=== PATIENT | male | born 1945 | race Caucasian/White ===

== ENCOUNTER 2021-06-22 06:31 | Inpatient (IN) | payer MEDICARE, OTHER ==
[~2021-06-22] VITALS: Ht 182.9 cm; Wt 113.0 kg
[2021-06-22] VITALS (16 sets, daily range): BP systolic 136–170; BP diastolic 71–95
[~2021-06-22 06:31] MED LIST: ATOR20TA66 PO; LEVO50TA8 PO
[2021-06-22] MEDS ORDERED: normal saline 1000ML IV soln IVB ONE (07:40)
[2021-06-22] MEDS ORDERED: iohexol 300mg/ml 100ml inj. ONE ×2 (08:56→09:20)
[2021-06-22 09:00] LABS: BASOPHILS % (AUTO) 0.1 % (0-1); EOSINOPHILS % (AUTO) 0.2 % (0-6); HEMATOCRIT 29.9 % (42.0-52.0); HEMOGLOBIN 9.5 g/dl (14.0-17.9); LYMPHOCYTES # (AUTO) 0.6 X10'3 (1.1-4.8); LYMPHOCYTES % (AUTO) 5.9 % (21-51); MEAN CORPUSCULAR HEMOGLOBIN 22.4 PG (27.0-31.0); MEAN CORPUSCULAR HGB CONC 31.6 g/dL (33.0-36.5); MEAN CORPUSCULAR VOLUME 70.7 FL (78-98); MEAN PLATELET VOLUME 7.2 FL (7.4-10.4); MONOCYTES # (AUTO) 0.5 X10'3 (0-0.9); MONOCYTES % (AUTO) 4.6 % (2-12); NEUTROPHILS # (AUTO) 9.3 X10'3 (1.8-7.7); NEUTROPHILS % (AUTO) 89.2 % (42-75); PLATELET COUNT 465 X10'3 (140-440); RED BLOOD COUNT 4.23 X10'6 (4.70-6.10); RED CELL DISTRIBUTION WIDTH 17.5 % (11.5-14.5); WHITE BLOOD COUNT 10.4 X10'3 (4.5-11.0)
[2021-06-22 09:13] LABS: ALANINE AMINOTRANSFERASE 22 U/L (12-78); ALBUMIN 3.8 G/DL (3.4-5.0); ALKALINE PHOSPHATASE 92 IU/L (46-116); ANION GAP 12 (8-16); ASPARTATE AMINO TRANSFERASE 17 U/L (10-37); BILIRUBIN,TOTAL 0.8 MG/DL (0.1-1.0); BLOOD UREA NITROGEN 25 MG/DL (7-18); BUN/CREATININE RATIO 18.8 (5.4-32.0); CALCIUM 9.6 MG/DL (8.5-10.1); CHLORIDE 104 MMOL/L (99-107); CREATININE 1.33 MG/DL (0.60-1.10); GLUCOSE 121 MG/DL (70-104); POTASSIUM 4.4 MMOL/L (3.5-5.1); SODIUM 143 MMOL/L (135-145); TOTAL CARBON DIOXIDE 27.2 MMOL/L (24-32); TOTAL PROTEIN 7.7 G/DL (6.4-8.2); eGFR 52 ML/MIN
[2021-06-22 09:22] LABS: MAGNESIUM 2.2 MG/DL (1.5-2.4)
[2021-06-22] MEDS ORDERED: potassium Cl 40MEQ/1/2NS 520ml 520 ML IV PRN ×2 (10:15)
[2021-06-22] MEDS ORDERED: magnesium 4gm in 100ml NS 100 ML IV PRN (10:15)
[2021-06-22] MEDS ORDERED: magnesium 2GM in 50ml NS 50 ML IV PRN (10:15)
[2021-06-22] MEDS ORDERED: PERFLUTREN PROTEIN-A MICROSPHR (Optison) 0.22 MG/ML 3ML VIAL IV ONE (10:15)
[2021-06-22] MEDS ORDERED: acetaminophen 325mg tablet PO PRN (10:15)
[2021-06-22] MEDS ORDERED: magnesium Cl slow-release 64mg tablet PO PRN (10:15)
[2021-06-22] MEDS ORDERED: ondansetron/PF 4mg/2ml inj IV PRN ×2 (10:15→17:30)
[2021-06-22] MEDS ORDERED: potassium Cl 20 mEq SR tablet PO PRN ×2 (10:15)
[2021-06-22] MEDS ORDERED: morphine 2 MG/ML inj. syringe IV PRN (10:15)
[2021-06-22] MEDS: K and/or MAG REPLACEMENT MC SCH (10:29)
[2021-06-22] MEDS: normal saline 1000ml 1,000 ML IV SCH ×2 (10:39→21:04)
[2021-06-22 10:56] LABS: PARTIAL THROMBOPLASTIN TIME 24 SECONDS (22-32)
[2021-06-22] MEDS ORDERED: ATOR20TA66 PO (10:58)
[2021-06-22] MEDS ORDERED: LEVO88TA7 PO (10:58)
[2021-06-22 12:55] LABS: CLARITY,URINE CLOUDY (Clear); COLOR,URINE YELLOW (Yellow); GLUCOSE, URINE NEGATIVE (Neg); PROTEIN,URINE NEGATIVE (Neg); UA COLLECTION TYPE CLN CATCH MIDSTREAM
[2021-06-22 12:56] LABS: KETONES,URINE TRACE mg/dl (Neg); LEUKOCYTE ESTERASE ,URINE NEGATIVE (Neg); NITRITES, URINE NEGATIVE (Neg); OCCULT BLOOD,URINE NEGATIVE (Neg); UROBILINOGEN,URINE 0.2 E.U/dL (0.2-1.0)
[2021-06-22 13:12] LABS: HYALINE CASTS 0-3 /LPF (NEGATIVE); MUCUS STRANDS MANY /LPF (Neg); SQUAMOUS EPITHELIAL CELL,UR FEW /LPF (FEW)
[2021-06-22 13:13] LABS: BACTERIA,URINE 1+ /HPF (Neg); RBC,URINE 0-2 /HPF (0-2); WBC,URINE 0-4 /HPF (0-4)
[2021-06-22] MEDS ORDERED: ePHEDrine 50MG/ML INJ. ONE (17:29)
[2021-06-22] MEDS ORDERED: ceFOXitin 2,000 MG/NS 100 ML ADD-VANTAGE bag IV ONE (17:29)
[2021-06-22] MEDS ORDERED: sevoflurane 250ml liquid IH ONE (17:29)
[2021-06-22] MEDS ORDERED: dexamethasone sod phosphate 10mg/ml inj ONE (17:29)
[2021-06-22] MEDS ORDERED: ringers solution, lacted 1,000 ML IV SCH (17:30)
[2021-06-22] MEDS ORDERED: HYDROmorphone/PF 0.2 MG/ML SYRINGE IV PRN (17:30)
[2021-06-22] MEDS ORDERED: BUPIVAcaine/PF 2.5mg/ml (0.25%) 10ml vial ONE (17:32)
[2021-06-22] MEDS ORDERED: BUPIVACAINE liposomal/PF 13.3 MG/ML vial IM ONE (17:32)
[2021-06-22] MEDS ORDERED: fentaNYL /PF 50mcg/ml 5ml ampule ONE (17:33)
[2021-06-22] MEDS ORDERED: LIDOcaine 2% (20mg/ml) 5ml vial ONE (18:54)
[2021-06-22] MEDS ORDERED: rocuronium 10mg/ml inj IV ONE (18:54)
[2021-06-22] MEDS ORDERED: acetaminophen 1,000mg/100ml IV 100 ML IV ONE (18:54)
[2021-06-22] MEDS ORDERED: glycopyrrolate 0.2mg/ml inj ONE (18:54)
[2021-06-22] MEDS ORDERED: ondansetron/PF 4mg/2ml inj ONE (18:54)
[2021-06-22] MEDS ORDERED: propofol inj 20 ML IV ONE (18:54)
[2021-06-22] MEDS ORDERED: neostigmine methylsulfate 1 MG/ML 10ml vial ONE (18:54)
[2021-06-22] MEDS ORDERED: sugammadex 200mg/2ml injection IV ONE (19:07)
--- NOTE | 2021-06-22 19:17 | NUR ---
Received from OR via , accompanied by Anesthesiologist DR APODACA and report given by Anesthesiolgist. PT PRESENTS WITH 20G LEFT AC, ABD DRESSING DRY AND INTACT, VSS. Addendum: 06/22/21 at 1936 by Viry Weaver RN, RN Amended: Links added.
[2021-06-22] MEDS ORDERED: ipratropium/albuterol 3ml nebule NEB PRN (19:30)
[2021-06-22] MEDS: HYDROmorphone/PF 0.2 MG/ML SYRINGE IV PRN ×3 (19:37→20:35)
[2021-06-22] MEDS: morphine 2 MG/ML inj. syringe IV PRN ×4 (19:52→20:16)
[2021-06-22 19:53] LABS: ISTAT HGB 10.2 g/dl (14.0-18.0); ISTAT IONIZED CALCIUM 1.08 mmol/L (1.03-1.32); ISTAT K 4.3 mmol/L (3.5-5.1)
--- NOTE | 2021-06-22 20:37 | NUR ---
Report called to receiving nurse SOFIA JAQUEZ. [facility]. PT'SBED LOW AND LOCKED, CALL LIGHT GIVEN TO PT. PT'S IN ROOM. GISELE BLACK IN ROOM TO ACCEPT PT. Addendum: 06/22/21 at 2054 by Viry Weaver RN, RN Amended: Links added.
[2021-06-22] MEDS ORDERED: temazepam 15mg capsule PO PRN (21:00)
[2021-06-22] MEDS: heparin, porcine 5000 units/ml vial SQ SCH (22:19)
[2021-06-22] MEDS: atorvastatin 20mg tablet PO SCH (22:22)
[2021-06-22] MEDS: HYDROcodone/acetaminophen 5mg/325mg tablet PO PRN (23:29)
[2021-06-23] VITALS (11 sets, daily range): BP systolic 108–170; BP diastolic 68–90
[2021-06-23 06:49] LABS: BASOPHILS % (AUTO) 0.1 % (0-1); EOSINOPHILS % (AUTO) 0 % (0-6); HEMATOCRIT 26.5 % (42.0-52.0); HEMOGLOBIN 8.5 g/dl (14.0-17.9); LYMPHOCYTES # (AUTO) 0.6 X10'3 (1.1-4.8); LYMPHOCYTES % (AUTO) 7.5 % (21-51); MEAN CORPUSCULAR HEMOGLOBIN 22.7 PG (27.0-31.0); MEAN CORPUSCULAR VOLUME 70.9 FL (78-98); MEAN PLATELET VOLUME 7.7 FL (7.4-10.4); MONOCYTES # (AUTO) 0.8 X10'3 (0-0.9); MONOCYTES % (AUTO) 9.7 % (2-12); NEUTROPHILS # (AUTO) 6.9 X10'3 (1.8-7.7); NEUTROPHILS % (AUTO) 82.7 % (42-75); PLATELET COUNT 400 X10'3 (140-440); RED BLOOD COUNT 3.74 X10'6 (4.70-6.10); RED CELL DISTRIBUTION WIDTH 17.8 % (11.5-14.5); WHITE BLOOD COUNT 8.3 X10'3 (4.5-11.0)
--- NOTE | 2021-06-23 06:52 | NUR ---
Patient in room PCU 3013. I have received report from Brunilda JAQUEZ and had the opportunity to ask questions and assume patient care.
[2021-06-23 07:33] LABS: ALANINE AMINOTRANSFERASE 16 U/L (12-78); ALBUMIN/GLOBULIN RATIO 0.9 (1.1-1.5); ALKALINE PHOSPHATASE 70 IU/L (46-116); ANION GAP 11 (8-16); ASPARTATE AMINO TRANSFERASE 13 U/L (10-37); BILIRUBIN,TOTAL 0.6 MG/DL (0.1-1.0); BLOOD UREA NITROGEN 22 MG/DL (7-18); BUN/CREATININE RATIO 16.2 (5.4-32.0); CALCIUM 7.8 MG/DL (8.5-10.1); CHLORIDE 107 MMOL/L (99-107); CREATININE 1.36 MG/DL (0.60-1.10); GLUCOSE 128 MG/DL (70-104); MAGNESIUM 1.9 MG/DL (1.5-2.4); POTASSIUM 4.4 MMOL/L (3.5-5.1); SODIUM 142 MMOL/L (135-145); TOTAL CARBON DIOXIDE 23.8 MMOL/L (24-32); TOTAL PROTEIN 6.3 G/DL (6.4-8.2); eGFR 51 ML/MIN
[2021-06-23] MEDS: normal saline 1000ml 1,000 ML IV SCH ×2 (07:49→21:20)
[2021-06-23] MEDS: HYDROcodone/acetaminophen 5mg/325mg tablet PO PRN (07:50)
[2021-06-23] MEDS: heparin, porcine 5000 units/ml vial SQ SCH ×2 (07:50→21:20)
[2021-06-23] MEDS: K and/or MAG REPLACEMENT MC SCH ×2 (08:00→20:00)
[2021-06-23] MEDS: levoTHYROXINE 88mcg tablet PO SCH (08:00)
--- NOTE | 2021-06-23 14:30 | NUR ---
Per Paul PT, patient okay to ambulate with nursing
--- NOTE | 2021-06-23 18:18 | NUR ---
Patient in room PCU 3013A. I have received report from GISELE Bragg and had the opportunity to ask questions and assume patient care.
--- NOTE | 2021-06-23 18:37 | NUR ---
Problems reprioritized. Patient report given, questions answered & plan of care reviewed with Breanne JAQUEZ.
[2021-06-23] MEDS: atorvastatin 20mg tablet PO SCH (21:20)
[2021-06-24] VITALS (8 sets, daily range): BP systolic 111–137; BP diastolic 57–80
[2021-06-24] MEDS: normal saline 1000ml 1,000 ML IV SCH ×3 (02:15→22:15)
--- NOTE | 2021-06-24 06:40 | NUR ---
Patient in room PCU 3013. I have received report from Breanne JAQUEZ and had the opportunity to ask questions and assume patient care.
--- NOTE | 2021-06-24 07:07 | NUR ---
Problems reprioritized. Patient report given, questions answered & plan of care reviewed with GISELE Hernandez.
[2021-06-24 07:11] LABS: BASOPHILS % (AUTO) 0.2 % (0-1); EOSINOPHILS % (AUTO) 0.2 % (0-6); HEMATOCRIT 27.8 % (42.0-52.0); HEMOGLOBIN 8.9 g/dl (14.0-17.9); LYMPHOCYTES # (AUTO) 1.3 X10'3 (1.1-4.8); LYMPHOCYTES % (AUTO) 15.3 % (21-51); MEAN CORPUSCULAR HEMOGLOBIN 22.4 PG (27.0-31.0); MEAN CORPUSCULAR HGB CONC 31.9 g/dL (33.0-36.5); MEAN CORPUSCULAR VOLUME 70.3 FL (78-98); MEAN PLATELET VOLUME 7.6 FL (7.4-10.4); MONOCYTES # (AUTO) 1.1 X10'3 (0-0.9); MONOCYTES % (AUTO) 12.8 % (2-12); NEUTROPHILS # (AUTO) 6.1 X10'3 (1.8-7.7); NEUTROPHILS % (AUTO) 71.5 % (42-75); PLATELET COUNT 446 X10'3 (140-440); RED BLOOD COUNT 3.95 X10'6 (4.70-6.10); RED CELL DISTRIBUTION WIDTH 17.6 % (11.5-14.5); WHITE BLOOD COUNT 8.5 X10'3 (4.5-11.0)
[2021-06-24 07:26] LABS: ALANINE AMINOTRANSFERASE 20 U/L (12-78); ALBUMIN 2.9 G/DL (3.4-5.0); ALBUMIN/GLOBULIN RATIO 0.8 (1.1-1.5); ALKALINE PHOSPHATASE 74 IU/L (46-116); ANION GAP 12 (8-16); ASPARTATE AMINO TRANSFERASE 20 U/L (10-37); BILIRUBIN,TOTAL 0.6 MG/DL (0.1-1.0); BLOOD UREA NITROGEN 16 MG/DL (7-18); BUN/CREATININE RATIO 9.7 (5.4-32.0); CHLORIDE 106 MMOL/L (99-107); CREATININE 1.65 MG/DL (0.60-1.10); GLUCOSE 131 MG/DL (70-104); MAGNESIUM 1.9 MG/DL (1.5-2.4); POTASSIUM 3.6 MMOL/L (3.5-5.1); SODIUM 141 MMOL/L (135-145); TOTAL PROTEIN 6.6 G/DL (6.4-8.2); eGFR 41 ML/MIN
[2021-06-24] MEDS: K and/or MAG REPLACEMENT MC SCH ×2 (08:00→19:45)
[2021-06-24] MEDS: heparin, porcine 5000 units/ml vial SQ SCH ×2 (08:55→21:17)
[2021-06-24] MEDS: levoTHYROXINE 88mcg tablet PO SCH (08:55)
[2021-06-24] MEDS ORDERED: benzocaine/menthol oral lozeng 1 EACH BOX MM PRN (14:25)
--- NOTE | 2021-06-24 18:30 | NUR ---
Patient in room PCU 3013. I have received report from Mary JAQUEZ and had the opportunity to ask questions and assume patient care.
--- NOTE | 2021-06-24 18:54 | NUR ---
Problems reprioritized. Patient report given, questions answered & plan of care reviewed with Dominga JAQUEZ.
[2021-06-24] MEDS: atorvastatin 20mg tablet PO SCH (21:17)
[2021-06-25] VITALS (13 sets, daily range): BP systolic 102–125; BP diastolic 54–70
--- NOTE | 2021-06-25 06:38 | NUR ---
Patient in room PCU 3013. I have received report from Cherelle JAQUEZ and had the opportunity to ask questions and assume patient care.
[2021-06-25 07:45] LABS: BASOPHILS % (AUTO) 0.5 % (0-1); EOSINOPHILS # (AUTO) 0.1 X10'3 (0-0.9); EOSINOPHILS % (AUTO) 1.1 % (0-6); HEMATOCRIT 24.7 % (42.0-52.0); HEMOGLOBIN 7.9 g/dl (14.0-17.9); LYMPHOCYTES # (AUTO) 1.4 X10'3 (1.1-4.8); LYMPHOCYTES % (AUTO) 17.7 % (21-51); MEAN CORPUSCULAR HEMOGLOBIN 22.7 PG (27.0-31.0); MEAN CORPUSCULAR VOLUME 70.9 FL (78-98); MEAN PLATELET VOLUME 7.8 FL (7.4-10.4); MONOCYTES # (AUTO) 0.7 X10'3 (0-0.9); MONOCYTES % (AUTO) 8.5 % (2-12); NEUTROPHILS # (AUTO) 5.8 X10'3 (1.8-7.7); NEUTROPHILS % (AUTO) 72.2 % (42-75); PLATELET COUNT 399 X10'3 (140-440); RED BLOOD COUNT 3.48 X10'6 (4.70-6.10); RED CELL DISTRIBUTION WIDTH 17.7 % (11.5-14.5); WHITE BLOOD COUNT 8.1 X10'3 (4.5-11.0)
[2021-06-25 07:55] LABS: ALANINE AMINOTRANSFERASE 29 U/L (12-78); ALBUMIN 2.8 G/DL (3.4-5.0); ALBUMIN/GLOBULIN RATIO 0.8 (1.1-1.5); ALKALINE PHOSPHATASE 74 IU/L (46-116); ANION GAP 14 (8-16); ASPARTATE AMINO TRANSFERASE 24 U/L (10-37); BILIRUBIN,TOTAL 0.6 MG/DL (0.1-1.0); BLOOD UREA NITROGEN 15 MG/DL (7-18); BUN/CREATININE RATIO 10.3 (5.4-32.0); CALCIUM 7.9 MG/DL (8.5-10.1); CHLORIDE 107 MMOL/L (99-107); CREATININE 1.45 MG/DL (0.60-1.10); GLUCOSE 103 MG/DL (70-104); POTASSIUM 3.2 MMOL/L (3.5-5.1); SODIUM 142 MMOL/L (135-145); TOTAL CARBON DIOXIDE 21.5 MMOL/L (24-32); TOTAL PROTEIN 6.5 G/DL (6.4-8.2); eGFR 47 ML/MIN
[2021-06-25] MEDS: levoTHYROXINE 100mcg tablet PO SCH (08:55)
[2021-06-25] MEDS: heparin, porcine 5000 units/ml vial SQ SCH ×2 (08:56→22:17)
--- NOTE | 2021-06-25 09:31 | NUR ---
Left message for wound care 06/25/21 0932 Patience RN PCU
--- NOTE | 2021-06-25 10:45 | NUR ---
PAGER ID: [phone] MESSAGE: Kim Arroyo in Room 3013A Is getting ready for an MRI, he is claustrophobic can we get Ativan for the patient before he goes? Please advise. Thank you Patience AGUAYO RN
[2021-06-25] MEDS ORDERED: LORazepam 2 mg/ml vial IV ONE (11:25)
[2021-06-25] MEDS ORDERED: magnesium Cl slow-release 64mg tablet PO PRN (11:45)
[2021-06-25] MEDS ORDERED: potassium Cl 20 mEq SR tablet PO PRN (11:45)
[2021-06-25] MEDS ORDERED: magnesium 2GM in 50ml NS 50 ML IV PRN (11:45)
[2021-06-25] MEDS ORDERED: potassium Cl 40MEQ/1/2NS 520ml 520 ML IV PRN (11:45)
[2021-06-25] MEDS ORDERED: magnesium 4gm in 100ml NS 100 ML IV PRN (11:45)
[2021-06-25 12:39] LABS: HEMATOCRIT 22.6 % (42.0-52.0); MEAN CORPUSCULAR HGB CONC 30.5 g/dL (33.0-36.5); MEAN CORPUSCULAR VOLUME 72.3 FL (78-98); MEAN PLATELET VOLUME 7.6 FL (7.4-10.4); PLATELET COUNT 330 X10'3 (140-440); RED BLOOD COUNT 3.13 X10'6 (4.70-6.10); WHITE BLOOD COUNT 6.1 X10'3 (4.5-11.0)
[2021-06-25 12:46] LABS: HEMOGLOBIN 6.9 g/dl (14.0-17.9)
--- NOTE | 2021-06-25 13:01 | NUR ---
PAGER ID: [phone] MESSAGE: Pt Kim Arroyo 3013A has Critical H/H of 6.9/22.6 with his hemogram redraw. Would you like me to infuse a unit of PRBC?
[2021-06-25] MEDS: potassium Cl 20 mEq SR tablet PO PRN ×3 (13:04→22:16)
--- NOTE | 2021-06-25 13:59 | NUR ---
Page to [facility] PAGER ID: [phone] MESSAGE: Pt Kim Arroyo repeat H/H is 6.9//22.6, would you like to transfuse? Pls advise, Orly [id number]
--- NOTE | 2021-06-25 14:12 | NUR ---
Called [facility] to see if biopsy was ready they stated it would be ready tomorrow. Patience
--- NOTE | 2021-06-25 14:14 | NUR ---
Unable to obtain 1100 vitals because patient was in a procedure.
--- NOTE | 2021-06-25 18:13 | NUR ---
Problems reprioritized. Patient report given, questions answered & plan of care reviewed with Felisa RN.
--- NOTE | 2021-06-25 18:38 | NUR ---
Problems reprioritized. Patient report given, questions answered & plan of care reviewed with Ni.
[2021-06-25] MEDS ORDERED: K and/or MAG REPLACEMENT MC SCH (20:00)
[2021-06-25] MEDS: atorvastatin 20mg tablet PO SCH (22:16)
[2021-06-26 00:51] VITALS: BP 110/54
[2021-06-26 01:51] VITALS: BP 101/55
[2021-06-26 02:00] VITALS: BP 110/57
--- NOTE | 2021-06-26 05:43 | NUR ---
Alert and responsive, oriented x 4 patient, who was admitted for SBO, and is POD#2 Exploratory laparotomy, with right colon resection. Patient`s hemoglobin was 6.9, and during this shift was administered two units of blood; tolerated with no adverse reactions presently. Vitals signs stable, and patient denied respiratory or physical distress.
[2021-06-26 06:00] VITALS: BP 98/57
--- NOTE | 2021-06-26 07:04 | NUR ---
Patient in room U 3013. I have received report from Felisa RN traveler and had the opportunity to ask questions and assume patient care.
[2021-06-26 07:26] LABS: BASOPHILS # (AUTO) 0.1 X10'3 (0-0.2); BASOPHILS % (AUTO) 0.8 % (0-1); EOSINOPHILS # (AUTO) 0.3 X10'3 (0-0.9); EOSINOPHILS % (AUTO) 3.9 % (0-6); HEMATOCRIT 28.1 % (42.0-52.0); HEMOGLOBIN 9.1 g/dl (14.0-17.9); LYMPHOCYTES # (AUTO) 1.3 X10'3 (1.1-4.8); MEAN CORPUSCULAR HEMOGLOBIN 23.9 PG (27.0-31.0); MEAN CORPUSCULAR HGB CONC 32.2 g/dL (33.0-36.5); MEAN CORPUSCULAR VOLUME 74.1 FL (78-98); MEAN PLATELET VOLUME 7.5 FL (7.4-10.4); MONOCYTES # (AUTO) 0.6 X10'3 (0-0.9); MONOCYTES % (AUTO) 9.5 % (2-12); NEUTROPHILS # (AUTO) 4.3 X10'3 (1.8-7.7); NEUTROPHILS % (AUTO) 65.8 % (42-75); PLATELET COUNT 340 X10'3 (140-440); RED BLOOD COUNT 3.79 X10'6 (4.70-6.10); RED CELL DISTRIBUTION WIDTH 20.2 % (11.5-14.5); WHITE BLOOD COUNT 6.6 X10'3 (4.5-11.0)
[2021-06-26 08:12] LABS: ALANINE AMINOTRANSFERASE 38 U/L (12-78); ALBUMIN 2.7 G/DL (3.4-5.0); ALBUMIN/GLOBULIN RATIO 0.7 (1.1-1.5); ALKALINE PHOSPHATASE 74 IU/L (46-116); ANION GAP 10 (8-16); ASPARTATE AMINO TRANSFERASE 29 U/L (10-37); BILIRUBIN,TOTAL 0.8 MG/DL (0.1-1.0); BLOOD UREA NITROGEN 12 MG/DL (7-18); CHLORIDE 111 MMOL/L (99-107); GLUCOSE 89 MG/DL (70-104); MAGNESIUM 2.1 MG/DL (1.5-2.4); POTASSIUM 3.7 MMOL/L (3.5-5.1); SODIUM 144 MMOL/L (135-145); TOTAL CARBON DIOXIDE 22.6 MMOL/L (24-32); TOTAL PROTEIN 6.4 G/DL (6.4-8.2); eGFR 59 ML/MIN
[2021-06-26] MEDS: levoTHYROXINE 100mcg tablet PO SCH (08:59)
[2021-06-26] MEDS: heparin, porcine 5000 units/ml vial SQ SCH (08:59)
[2021-06-26] MEDS ORDERED: HYDR-3965 PO (09:48)
[2021-06-26] MEDS ORDERED: LEVO100T9 PO (09:48)
[2021-06-26 11:00] VITALS: BP 104/45
--- NOTE | 2021-06-26 11:30 | NUR ---
Wound care consult received for "Possible need for Wound Vac placement", however, there are no orders for vac. Patient has current orders for [id number] and dressing change performed today by primary RN. Patient is being discharged shortly.
--- NOTE | 2021-06-26 12:40 | NUR ---
Pt DC to home with . Pt is A & O x4 and in no apparent distress. Pt and verbalize understanding of ALL Dc orders. pt and educated/shown how to care for incisional wound. able to teach back. Home Health has been arrange for pt to get help with wound care and/or other needs as identified by nurse. Pt given supplies for wound care change for at least 3-4 days. pt is also going to follow up in 3-[address] Gayle and PCP. Pt given phone number to call for an Appointment. New Medications given and called into pharmacy. Pt wheeled to the front where took him home.
== END 2021-06-26 12:40 | disposition home health service (06) | DRG 331 ==
LOC: ER 06:31 → ED HOLD 10:18 → PCU 3S 20:42
PROVIDERS: ADMIT Internal Medicine; ATTEND Internal Medicine
PROC: 07BB0ZZ Excision of Mesenteric Lymphatic, Open Approach (ICD-10-PCS; 2021-06-22)
PROC: 0DTH0ZZ Resection of Cecum, Open Approach (ICD-10-PCS; principal; 2021-06-22 17:29)
PROC: 30233N1 Transfusion of Nonautologous Red Blood Cells into Peripheral Vein, Percutaneous Approach (ICD-10-PCS; 2021-06-25)
DX: K63.9 Disease of intestine, unspecified (principal); K56.601 Complete intestinal obstruction, unspecified as to cause; D64.9 Anemia, unspecified; E03.9 Hypothyroidism, unspecified; S00.81XA Abrasion of other part of head, initial encounter; E78.00 Pure hypercholesterolemia, unspecified; E78.5 Hyperlipidemia, unspecified; W18.39XA Other fall on same level, initial encounter; Z20.822 Contact with and (suspected) exposure to COVID-19; R55 Syncope and collapse; J44.9 Chronic obstructive pulmonary disease, unspecified; K80.20 Calculus of gallbladder without cholecystitis without obstruction; N18.30 Chronic kidney disease, stage 3 unspecified; Y93.89 Activity, other specified; Y92.89 Other specified places as the place of occurrence of the external cause; Y99.8 Other external cause status
CPT/HCPCS: 36415; 70450; 70544; 70551; 71045; 74176; 80047; 80053; 81001; 82378; 82948; 83735; 83880; 84443; 84484; 85025; 85027; 85610; 85730; 86885; 86900; 86901; 86920; 87635; 93005; 93306; 93880; 94640; 94760; 96360; 96361; 97116; 97161; 99285; A4618; A6253; A6446; A7000; C1758; C9290; C9399; C9803; G0378; J0131; J0694; J1100; J1170; J1644; J2001; J2060; J2270; J2405; J2704; J2710; J3010; J3490; J7030; J7120; P9016; Q9967

== ENCOUNTER 2021-08-26 10:45 | Day surgery (SDC) | payer MEDICARE, OTHER ==
[~2021-08-26] VITALS: Ht 182.9 cm; Wt 113.4 kg
[~2021-08-26 10:45] MED LIST changes: +LEVO100T9 PO; -LEVO50TA8 PO
[2021-08-26] MEDS ORDERED: normal saline 1000ml 1,000 ML IV PRN (11:10)
[2021-08-26 11:29] VITALS: BP 138/79
[2021-08-26] MEDS ORDERED: FERR325T29 PO (11:29)
[2021-08-26] MEDS ORDERED: OMEP10CA5 PO (11:29)
[2021-08-26] MEDS ORDERED: LEVO100T PO (11:31)
[2021-08-26 11:55] LABS: BASOPHILS # (AUTO) 0.1 X10'3 (0-0.2); BASOPHILS % (AUTO) 1.2 % (0-1); EOSINOPHILS # (AUTO) 0.1 X10'3 (0-0.9); EOSINOPHILS % (AUTO) 2.2 % (0-6); HEMATOCRIT 36.8 % (42.0-52.0); HEMOGLOBIN 11.9 g/dl (14.0-17.9); LYMPHOCYTES # (AUTO) 0.9 X10'3 (1.1-4.8); LYMPHOCYTES % (AUTO) 20.9 % (21-51); MEAN CORPUSCULAR HEMOGLOBIN 26.6 PG (27.0-31.0); MEAN CORPUSCULAR HGB CONC 32.3 g/dL (33.0-36.5); MEAN CORPUSCULAR VOLUME 82.5 FL (78-98); MEAN PLATELET VOLUME 7.7 FL (7.4-10.4); MONOCYTES # (AUTO) 0.4 X10'3 (0-0.9); MONOCYTES % (AUTO) 9.5 % (2-12); NEUTROPHILS # (AUTO) 2.9 X10'3 (1.8-7.7); NEUTROPHILS % (AUTO) 66.2 % (42-75); PLATELET COUNT 224 X10'3 (140-440); RED BLOOD COUNT 4.46 X10'6 (4.70-6.10); RED CELL DISTRIBUTION WIDTH 27.2 % (11.5-14.5); WHITE BLOOD COUNT 4.5 X10'3 (4.5-11.0)
[2021-08-26 12:15] LABS: ACANTHOCYTES 1+; ANISOCYTOSIS 3+; ELLIPTOCYTES 1+; PLATELET ESTIMATE NORMAL; SCHISTOCYTES FEW
[2021-08-26 12:21] LABS: ALBUMIN 3.7 G/DL (3.4-5.0); ANION GAP 8 (8-16); BLOOD UREA NITROGEN 14 MG/DL (7-18); BUN/CREATININE RATIO 9.6 (5.4-32.0); CALCIUM 9.1 MG/DL (8.5-10.1); CHLORIDE 107 MMOL/L (99-107); CREATININE 1.46 MG/DL (0.60-1.10); GLUCOSE 97 MG/DL (70-104); POTASSIUM 4.1 MMOL/L (3.5-5.1); SODIUM 143 MMOL/L (135-145); TOTAL CARBON DIOXIDE 27.6 MMOL/L (24-32); eGFR 47 ML/MIN
[2021-08-26] MEDS ORDERED: heparin sodium, porcine/PF 100unit/ml 5ML syringe ONE (12:30)
[2021-08-26] MEDS ORDERED: LIDOCAINE 1%/EPI 1:100,000 inj. 10 ML multi-dose vial ONE (12:30)
[2021-08-26] MEDS ORDERED: midazolam 1 mg/ML 2ml injection ONE (12:31)
[2021-08-26] MEDS ORDERED: fentaNYL/PF 50MCG/1 ML 2ML syringe ONE (12:31)
[2021-08-26 13:44] VITALS: BP 127/90
[2021-08-26 14:00] VITALS: BP 126/77
[2021-08-26 14:30] VITALS: BP 125/75
== END 2021-08-26 15:15 | disposition home or self-care (01) ==
LOC: SSTAY O 10:45
PROVIDERS: ATTEND Preventive Medicine Aerospace Medicine
DX: C16.0 Malignant neoplasm of cardia (principal); E03.9 Hypothyroidism, unspecified; Z20.822 Contact with and (suspected) exposure to COVID-19; Z90.49 Acquired absence of other specified parts of digestive tract; Z98.890 Other specified postprocedural states; Z83.6 Family history of other diseases of the respiratory system
CPT/HCPCS: 36415; 36561; 76937; 77001; 80048; 85025; 85610; 87635; 99152; 99153; C1769; C1788; C1894; C9803; J1642; J2250; J3010; J3490; 85008